=== PATIENT | female | born 1950 | race Caucasian/White ===

== ENCOUNTER → 2016-04-29 | Outpatient (CLI) | payer OTHER ==
--- NOTE | 2016-05-02 08:51 | MA ---
Bilateral Screening Digital Mammograms with iCAD Clinical Indications: Routine screening mammograms. Technique: Standard digital cephalocaudal and mediolateral oblique projections were obtained. [facility]. Comparison: April 2015, March 2014, March 2013 and February 2012 Breast Parenchymal Density: B Findings: Developing density with possible focal architectural distortion in the upper slightly inne r left breast. The remainder of the left and right breast are stable. Impression: Developing density with possible architectural distortion left breast Recommendation: Diagnostic mammogram with spot compression views followed by ultrasound at the discre tion of the interpreting radiologist. The patients information is entered into a reminder system with a target due date for her next mammog [place]. Negative mammography should not preclude additional workup of a clinically suspicious finding.
== END ==
LOC: BMCIMAGING 14:15
DX: Z12.31 Encounter for screening mammogram for malignant neoplasm of breast (principal); N63 Unspecified lump in breast
CPT/HCPCS: G0202

== ENCOUNTER → 2016-05-19 | Outpatient (CLI) | payer OTHER ==
--- NOTE | 2016-05-19 13:11 | MA ---
Diagnostic Digital Mammogram Left Breast With iCAD Analysis Reason for examination: Evaluate possible developing architectural change in the upper left breast id entified on the screening study April 29, 2016. Technique: Oblique and craniocaudal spot compression views were obtained. Also, a true lateral was pe rformed. The examination was processed by the iCAD computer-aided detection system. Comparison: Comparison to older studies dating back to March 2011. Findings: The abnormality does not persist on diagnostic evaluation and it was probably related to chavez perimposition of normal glandular elements on the screening study. The appearance on diagnostic asse ssment is unchanged compared to the older studies. Impression: Negative diagnostic mammography. BI-RADS: 1. Recommendation: Resume routine mammographic screening in one year as long as physical examination is negative. A verbal report was given to the patient. [facility] with send a result letter.
== END ==
LOC: BMCIMAGING 12:20
PROVIDERS: ATTEND Nurse Practitioner Adult Health
DX: R92.2 Inconclusive mammogram (principal)
CPT/HCPCS: G0206

== ENCOUNTER → 2017-05-01 | Outpatient (CLI) | payer OTHER | LOC: BMCIMAGING 14:23 | PROVIDERS: ATTEND Nurse Practitioner Adult Health | DX: Z12.31 Encounter for screening mammogram for malignant neoplasm of breast (principal); Z80.3 Family history of malignant neoplasm of breast ==

== ENCOUNTER → 2018-04-15 | Outpatient (CLI) | payer OTHER | LOC: BMCIMAGING 13:35 | PROVIDERS: ATTEND Nurse Practitioner Adult Health | DX: Z12.31 Encounter for screening mammogram for malignant neoplasm of breast (principal) ==